=== PATIENT | female | born 1995 ===

== ENCOUNTER 2018-06-09 18:51 | Emergency (ER) | payer MEDICAID ==
[2018-06-09 19:18] VITALS: PULSE 98; RESP 18; TEMP 98.4
[2018-06-09 20:07] LABS: BASO % 0.6 % (0.0-2.0); EOS % 0.6 % (0.0-4.0); HEMOGLOBIN 12.7 g/dL (12.0-16.0); LYMPH # 1.3 K/uL (1.0-4.3); LYMPH % 21.5 % (20.0-40.0); MEAN CELL VOLUME 91.8 fl (81.0-99.0); MEAN CORPUSCULAR HEMOGLOBIN 30.5 pg (27.0-31.0); MEAN CORPUSCULAR HGB CONC 33.2 g/dL (33.0-37.0); MONO # 0.5 K/uL (0.0-0.8); MONO % 8.3 % (0.0-10.0); NRBC % 0.1 % (0.0-0.0); RBC 4.16 Mil/uL (3.80-5.20); RED CELL DISTRIBUTION WIDTH 12.7 % (11.5-14.5); WHITE BLOOD COUNT 5.8 K/uL (4.8-10.8)
--- NOTE | 2018-06-09 20:11 | ED PDOC ---
HPI: Female Pain Time Seen by Provider: 06/09/18 19:43 Chief Complaint (Nursing): Female Genitourinary Chief Complaint (Provider): vaginal bleeding History Per: Patient History/Exam Limitations: no limitations Onset/Duration Of Symptoms: Days (3), Gradual Current Symptoms Are (Timing): Still Present Severity: Moderate Quality Of Discomfort: Cramping Associated Symptoms: denies: Diarrhea, Urinary Symptoms Additional Complaint(s): 22yo female approx 10wks , was diagnosed w IUP but demise at [facility] 2 days ago, bleeding persisted but worsened today with clots and cramping, felt a little dizzy earlier today. Denies syncope. Used 4 pads today. Last Menstral Period: mar 21 : 5 Para: 2 Miscarriage: 2 (2 prior terminations 2 live children) Past Medical History Reviewed: Historical Data, Nursing Documentation, Vital Signs Vital Signs: Last Vital Signs Temp 98.4 F 06/09/18 19:17 Pulse 98 H 06/09/18 19:17 Resp 18 06/09/18 19:17 BP 129/88 06/09/18 19:17 Pulse Ox 99 06/09/18 19:17 - Medical History PMH: No Chronic Diseases - Family History Family History: States: Unknown Family Hx - Immunization History Hx Tetanus Toxoid Vaccination: No Hx Influenza Vaccination: No Hx Pneumococcal Vaccination: No - Allergies Allergies/Adverse Reactions: Allergies Allergy/AdvReac Type Severity Reaction Status Date / Time No Known Allergies Allergy Verified 02/14/17 15:17 - Laboratory Results Result Diagrams: 06/09/18 19:41 - ECG O2 Sat by Pulse Oximetry: 99 Medical Decision Making Medical Decision Making: paperwork from [facility] reviewed, + demise on US 10wk, nonviable workup for incomplete initiated check labs and US Rh+ from prior visit endorse Dr Monreal 8pm pending workup Disposition - Clinical Impression Clinical Impression: Incomplete - Patient ED Disposition Is Patient to be Admitted: Transfer of Care - Disposition Disposition: Transfer of Care Disposition Time: 20:12 Patient Signed Over To: Agustin Monreal
[2018-06-09 20:25] LABS: BLOOD UREA NITROGEN 9 mg/dl (7-17); CALCIUM 9.4 mg/dL (8.4-10.2); GFR NON-AFRICAN AMERICAN > 60
--- NOTE | 2018-06-09 20:35 | ED PDOC ---
- Laboratory Results Result Diagrams: 06/09/18 19:41 06/09/18 19:41 - ECG O2 Sat by Pulse Oximetry: 99 (RA) Pulse Ox Interpretation: Normal Medical Decision Making Medical Decision Makin:10 Patient signed out to this provider by Dr. Dawson pending repeat beta-HCG and OB ultrasound. 21:04 EXAM: US Obstetrical, Complete <14 weeks CLINICAL HISTORY: Bleeding for 3 days with clots with TECHNIQUE: Transvaginal and transabdominal imaging of the maternal pelvis and a <14 week gestation with image documentation. COMPARISON: None provided. FINDINGS: GESTATION: No identification of IUP or ectopic gestation. UTERUS: Anteverted in position and enlarged measuring 11.5 x 6.2 x 7.0 cm in longitudinal, AP and transverse dimensions respectively. No myometrial mass. ENDOMETRIUM: The endometrium is quite thickened measuring 2.5 cm in AP dimension. This could be compatible with a decidual reaction or retained products of conception if there has been a recent spontaneous miscarriage. CERVIX: Closed. Unremarkable. OVARIES: Unremarkable. No mass. FREE FLUID: No free fluid. IMPRESSION: 1. No identification of an IUP or ectopic gestation. 2. Thickening of the endometrial echo complex could be compatible with a decidual reaction or retained products of conception if there has been a recent spontaneous miscarriage. 21;55 In addition to the US report showing no IUP, Beta-HCG is decreasing signifying that patient likely passed . Vitals are stable and within normal limits. Instructed to follow up with [employer] dispatcher within one week. 22:00 Patient passed a clot of blood; could have been material ( senior writer did not see). Patient states has an appointment with her OBGYN on Sunday. i told her to be sure to go to that appt. Scribe Attestation: Documented by Chanel Silva, acting as a scribe for Agustin Monreal MD Provider Scribe Attestation: All medical record entries made by the [facility] were at my direction and personally dictated by me. I have reviewed the chart and agree that the record accurately reflects my personal performance of the history, physical exam, medical decision making, and the department course for this patient. I have also personally directed, reviewed, and agree with the discharge instructions and disposition Disposition Counseled Patient/Family Regarding: Studies Performed, Diagnosis, Need For Followup - Clinical Impression Clinical Impression: Incomplete - POA Present On Arrival: None - Disposition Disposition: Routine/Home Disposition Time: 21:55 Condition: IMPROVED Additional Instructions: follow up with your [employer] dispatcher within one week return to the ED with any worsening or concerning symptoms Instructions: Miscarriage (DC) Forms: [email or web address] (Emirati)
[2018-06-09 22:43] VITALS: BP 122/84
[2018-06-10 05:16] VITALS: O2SAT 99
--- NOTE | 2018-06-10 12:06 | US ---
Date of service: 06/09/2018 HISTORY: spotting 10wks LMP 03/23/2018. COMPARISON: None TECHNIQUE: Transvaginal only. Real -time technique with 2D, duplex and color Doppler FINDINGS: UTERUS: Measures 6.2 x 7 x 11.5 cm. Normal in size and appearance. No fibroid or other mass lesion seen. ENDOMETRIUM: Measures 20.5 mm in diameter. Thickened heterogeneous endometrium. No visible products of conception. CERVIX: No cervical abnormality identified. Closed cervix measures 5.02 cm in length. RIGHT OVARY: Measures 1.8 x 2.3 x 3.2 cm. No solid mass. Normal flow. LEFT OVARY: Measures 2.2 x 2.6 x 3.3 cm. No solid mass. Normal flow. FREE FLUID: No significant free fluid noted. OTHER FINDINGS: None. IMPRESSION: Endometrial hypertrophy. No visible products of conception. Unremarkable adnexa. Concordant findings (preliminary report) provided by [employer].
== END 2018-06-09 22:41 | disposition home or self-care (01) ==
LOC: H.ER 18:51
DX: O03.4 Incomplete spontaneous abortion without complication (principal); Z3A.14 14 weeks gestation of pregnancy